=== PATIENT | female | born 1995 | race Hispanic/Latino ===

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

== ENCOUNTER 2017-04-07 18:10 | Emergency (ER) | payer MEDICAID ==
[2017-04-07] MEDS ORDERED: NACL 0.9% 1000 ML 2,000 ML IV ONE (23:51)
[2017-04-07] MEDS ORDERED: SUBLIMAZE IV ONE (23:51)
[2017-04-07] MEDS ORDERED: BENADRYL IV ONE (23:51)
[2017-04-07] MEDS ORDERED: REGLAN IV ONE (23:57)
[2017-04-08 01:10] LABS: Alanine Aminotransferase 69 units/L (7-56); Albumin 3.2 g/dL (3.9-5); BUN/Creatinine Ratio 20; Blood Urea Nitrogen 8 mg/dL (7-17); Calcium 8.3 mg/dL (8.4-10.2); Hemolysis Index 1
[2017-04-08 01:11] LABS: Basophils % (Auto) 0.1 % (0.0-1.8); Eosinophils # (Auto) 0.2 K/mm3 (0.0-0.4); Eosinophils % (Auto) 1.8 % (0.0-4.3); Hematocrit 36.1 % (30.3-42.9); Hemoglobin 11.9 gm/dl (10.1-14.3); Lymphocytes # (Auto) 2.7 K/mm3 (1.2-5.4); Lymphocytes % (Auto) 25.7 % (13.4-35.0); Mean Corpuscular HGB Conc 33 % (30-34); Mean Corpuscular Hemoglobin 29 pg (28-32); Mean Corpuscular Volume 87 fl (79-97); Monocytes % (Auto) 9.8 % (0.0-7.3); Platelet Count 421 K/mm3 (140-440); Red Blood Count 4.17 M/mm3 (3.65-5.03)
[2017-04-08 01:18] LABS: Bilirubin,Direct < 0.2 mg/dL (0-0.2)
--- NOTE | 2017-04-08 02:06 | Cat Scan Report ---
FINAL REPORT EXAM: CT HEAD/BRAIN W/O CONTRAST HISTORY: Headache. TECHNIQUE: Unenhanced axial CT images of the brain were obtained. No prior studies are available for comparison. FINDINGS: The cortical sulci and ventricles are within normal limits for patient's age. There is slight prominence of the pituitary gland, measuring 1.2 x 1.1 cm, with slightly hyperdense appearance. This may represent pituitary hyperplasia related to patient's recent state. However, underlying mass or hemorrhage is not excluded. There are no fluid-fluid levels. The garcia-white differentiation is maintained. There is no extra-axial fluid collection, mass effect, midline shift, or hydrocephalus. 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 There is opacification of an anterior left ethmoid air cell. The remainder of the visualized paranasal sinuses and mastoid air cells are clear. There is no skull fracture or other osseous abnormality. The visualized orbits and globes are grossly unremarkable. These findings were discussed with Dr. Ng at time of interpretation 2:01 a.m. EST 04/08/2017. IMPRESSION: 1. 1.2 x 1.1 cm slight relative prominence of the pituitary gland, with slightly hyperdense appearance. Underlying pituitary mass or hemorrhage is not excluded. Clinical correlation is recommended, and further evaluation with pituitary MRI (with and without contrast) is suggested. 2. No mass effect or hydrocephalus. 3. Minimal anterior left ethmoid sinus mucosal disease.
--- NOTE | 2017-04-08 02:51 | Emergency Department Report ---
HPI - General Chief Complaint: Headache Time Seen by Provider: 04/07/17 23:12 - HPI HPI: The patient is a 21-year-old female who presents for evaluation of headache for the past 5 days. She states that she has had headaches since receiving an epidural prior to child delivery. She complains of a constant headache since the procedure, currently 10/10 in severity, throbbing in quality, exacerbated with sitting up and improved with lying down. The patient denies fever, head injury, neck pain or neck stiffness, chest pain, dyspnea, abdominal pain, vision or hearing changes, smell or taste changes, paresthesias, facial drooping , slurred speech, seizure-like activity, urine or bowel incontinence or retention, or other focal neurological deficit. She states that she is formula feeding her child and will not be engaging in breast feeding of her child. ED Past Medical Hx - Past Medical History Previous Medical History?: Yes Hx Hypertension: No Hx Congestive Heart Failure: No Hx Diabetes: No Hx Deep Vein Thrombosis: No Hx Renal Disease: No Hx Sickle Cell Disease: No Hx Seizures: No Hx Asthma: No Hx COPD: No Hx HIV: No Additional medical history: Vaginal delivery x 2 - Surgical History Past Surgical History?: No - Social History Smoking Status: Current Every Day Smoker Substance Use Type: Alcohol, Prescribed - Medications Home Medications: Home Medications Medication Instructions Recorded Confirmed Last Taken Type Valacyclovir HCl [valACYclovir] 1 tab PO DAILY 03/05/16 04/02/17 1 Day Ago History ~04/01/17 Butalb/Acetaminophen/Caffeine 1 - 2 cap PO Q6HR PRN #12 cap 04/08/17 Unknown Rx [Fioricet 50-300-40 mg CAP] ED Review of Systems ROS: Stated complaint: HEADACHE Other details as noted in HPI Constitutional: denies: fever ENT: denies: throat or neck pain Respiratory: denies: cough, shortness of breath Cardiovascular: denies: chest pain Endocrine: denies unexplained weight loss or gain Gastrointestinal: denies: abdominal pain, nausea Genitourinary: denies: dysuria Musculoskeletal: denies: leg swelling Skin: denies: rash Neurological: reports: headache Hematological/Lymphatic: denies: easy bleeding or easy bruising Psych: denies sadness or hopelessness Physical Exam - Physical Exam Vital Signs: Vital Signs 02/08/18 02/08/18 18:36 21:52 Temperature 98.4 F 97.5 F L Pulse Rate 71 60 Respiratory 18 20 Rate Blood Pressure 120/72 Blood Pressure 108/54 [Left] O2 Sat by Pulse 99 97 Oximetry Physical Exam: General: well-nourished, well-developed, no acute distress Head: Normocephalic, atraumatic Eyes: normal sclera, PERRL, EOM intact ENT: Mucous membranes are pale and dry Neck: No neck stiffness, no cervical adenopathy Respiratory: Breath sounds equal bilaterally, no wheezing, rales, or rhonchi Cardio: S1 and S2 present, no murmurs, rubs, gallops, capillary refill is delayed Abdomen: Normoactive bowel sounds, soft abdomen, no rigidity, no guarding or rebound tenderness Chest WALL/Back: No tenderness to palpation of the chest wall, no CVA tenderness with percussion Musc: No pitting edema Skin: No rash Neuro: alert oriented x4, normal cognition, speech normal, no facial drooping, no uvula or tongue deviation on protrusion, no deficit with rotation of neck or shoulder shrug, no obvious gross motor deficit in the upper or lower extremities with flexion or extension at the shoulder, elbow, wrist, hip, knee, or ankle bilaterally, no obvious gross sensation deficit to crude touch or 2 pt discrimination, 2+ symmetric reflexes on DTR testing, no coordination deficit with [id number] or lqie-jz-aldx testing, romberg negative, patient able to to ambulate without abnormal gait Psych: Normal affect ED Course Vital Signs 18 02 18:36 21:52 Temperature 98.4 F 97.5 F L Pulse Rate 71 60 Respiratory 18 20 Rate Blood Pressure 120/72 Blood Pressure 108/54 [Left] O2 Sat by Pulse 99 97 Oximetry ED Medical Decision Making - Lab Data Result diagrams: 04/08/17 00:16 04/08/17 00:16 - Medical Decision Making The patient was seen and examined by myself. 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 On initial evaluation, the patient was found to be in no distress. Although there are no neuro deficits or other findings on examination concerning for acute intracranial disease process, as the patient has a space constant headache since epidural, a CAT scan the head will be obtained to rule out hydrocephaly and investigate findings concerning for epidural induced cerebral spinal fluid change. IV access is established and the patient is given IV Reglan, Benadryl, and fentanyl for headache. CT scan the head exhibited hypodensity in the pituitary region, and CT scan is unable to rule out acute ischemia or hemorrhage. An MRI of the head with and without contrast is ordered. The patient was reevaluated and reported that her pain was resolved. She was informed of recommendation to receive MRI of the head but declined. She stated that she felt back to baseline she would like to be discharged home. She was informed of benefits of receiving MRI of the head to rule out acute intracranial disease process versus risks of refusal of further evaluation. The patient is competent and was able to benefits of treatment and risks of refusal, other diagnostic options, including risk of . The patient signs out AGAINST MEDICAL ADVICE. Critical care attestation.: If time is entered above; I have spent that time in minutes in the direct care of this critically ill patient, excluding procedure time. ED Disposition Clinical Impression: Epidural anesthesia-induced headache during labor and delivery Headache, acute Qualifiers: Headache type: unspecified Intractability: not intractable Qualified Code(s): R51 - Headache Disposition: DC-07 LEFT AGAINST MED ADVICE Is pt being admited?: No Does the pt Need Aspirin: No Condition: Stable Instructions: Acute Headache (ED) Additional Instructions: Return to an emergency department as soon as possible to receive MRI of the brain with and without contrast to rule out pituitary infarction or hemorrhage, as her CAT scan was concerning for a pituitary lesion as was explained to you. Prescriptions: Butalb/Acetaminophen/Caffeine [Fioricet 50-300-40 mg CAP] 1 - 2 cap PO Q6HR PRN #12 cap PRN Reason: Headache Referrals: JUSTIN COLIN MD [Primary Care Provider] - 24 Hours Time of Disposition: 02:46
[2017-04-08 03:09] VITALS: BP 106/61
== END 2017-04-08 03:09 | disposition left against medical advice (07) ==
LOC: ED 18:10
DX: R51 Headache (principal); F17.200 Nicotine dependence, unspecified, uncomplicated
CPT/HCPCS: 36415; 70450; 80048; 80074; 85025; 96361; 96374; 96375; 99284; J1200; J2765; J3010; J7030

== ENCOUNTER 2018-09-20 17:55 | Outpatient (CLI) | payer MEDICAID ==
[2018-09-20 19:05] LABS: Amorphous Crystals,Urine 1+; Bacteria,Urine 1+ /HPF (Negative); Bilirubin,Urine NEG (Negative); Blood,Urine MOD (Negative); Color,Urine Yellow (Yellow); Mucus,Urine FEW /HPF; Protein,Urine <15 mg/dL mg/dL (Negative)
[2018-09-20 19:20] VITALS: BP 100/55
== END 2018-09-20 19:55 | disposition home or self-care (01) ==
LOC: TRG 17:55
PROVIDERS: ATTEND Obstetrics & Gynecology
DX: O47.03 False labor before 37 completed weeks of gestation, third trimester (principal); Z3A.34 34 weeks gestation of pregnancy
CPT/HCPCS: 81001

== ENCOUNTER 2018-10-17 15:57 | Outpatient (CLI) | payer MEDICAID ==
[2018-10-17 16:59] LABS: Amorphous Crystals,Urine 2+; Bilirubin,Urine NEG (Negative); Blood,Urine SM (Negative); Color,Urine Yellow (Yellow); Protein,Urine <15 mg/dL mg/dL (Negative); Urobilinogen,Urine < 2.0 mg/dL (<2.0)
[2018-10-17] MEDS ORDERED: LACTATED RINGERS 1,000 ML IV SCH (17:00)
[2018-10-17 17:05] LABS: RBC,Urine < 1.0 /HPF (0.0-6.0)
[2018-10-17] MEDS ORDERED: ZOFRAN IV ONE (18:33)
[2018-10-17] MEDS ORDERED: VISTARIL PO ONE (19:33)
[2018-10-17 20:27] VITALS: BP 108/57
[2018-10-17] MEDS ORDERED: ANCEF/NS 1 GM/50 ML 1 GM/50 ML BAG IV ONE (20:36)
== END 2018-10-17 20:40 | disposition home or self-care (01) ==
LOC: TRG 15:57
PROVIDERS: ATTEND Obstetrics & Gynecology
DX: O26.893 Other specified pregnancy related conditions, third trimester (principal); M54.5 Low back pain; O47.1 False labor at or after 37 completed weeks of gestation; O99.333 Smoking (tobacco) complicating pregnancy, third trimester; F17.200 Nicotine dependence, unspecified, uncomplicated; Z3A.37 37 weeks gestation of pregnancy
CPT/HCPCS: 59025; 81001; 87086; 96361; 96365; 96367; J0690; J2405; J7120; 96360; Q0177

== ENCOUNTER 2018-10-18 01:33 | Inpatient (IN) | payer MEDICAID ==
[2018-10-18] MEDS ORDERED: COLACE PO PRN (01:57)
[2018-10-18] MEDS ORDERED: TYLENOL PO PRN (01:57)
[2018-10-18] MEDS ORDERED: ZOFRAN IV PRN (01:57)
[2018-10-18] MEDS: MORPHINE IV PRN ×3 (03:28→12:52)
[2018-10-18 03:55] LABS: Basophils % (Auto) 0.1 % (0.0-1.8); Hematocrit 32.7 % (30.3-42.9); Lymphocytes # (Auto) 1.6 K/mm3 (1.2-5.4); Lymphocytes % (Auto) 14.2 % (13.4-35.0); Mean Corpuscular HGB Conc 34 % (30-34); Mean Corpuscular Volume 82 fl (79-97); Monocytes # (Auto) 1.4 K/mm3 (0.0-0.8); Monocytes % (Auto) 11.8 % (0.0-7.3); Platelet Count 328 K/mm3 (140-440); Red Blood Count 3.99 M/mm3 (3.65-5.03); Red Cell Distribution Width 15.6 % (13.2-15.2)
[2018-10-18] MEDS: PRENATAL VITAMIN PO SCH (10:22)
--- NOTE | 2018-10-18 11:38 | Ultrasound Report ---
ULTRASOUND RENAL INDICATION / CLINICAL INFORMATION: right flank pain. COMPARISON: None available. FINDINGS: RIGHT KIDNEY: Length = 13.7 cm. [normal > 9 cm] - Parenchymal Thickness = 1.6 cm. [normal > 1.5 cm] - Echogenicity: Slightly increased - Hydronephrosis: Moderate right hydronephrosis - Cyst or mass: No significant abnormality. - Stones: None seen. LEFT KIDNEY: Length = 13.3 cm. [normal > 9 cm] - Parenchymal Thickness = 1.3 cm. [normal > 1.5 cm] - Echogenicity: Slightly increased - Hydronephrosis: Mild to moderate left hydronephrosis - Cyst or mass: No significant abnormality. - Stones: None seen. URINARY BLADDER: No significant abnormality. FREE FLUID: None. ADDITIONAL FINDINGS: None. IMPRESSION: Bilateral hydronephrosis, right greater than left. Signer Name: Norman Longoria Jr, MD Signed: 10/18/2018 11:33 AM Workstation Name: [id number]
[2018-10-18] MEDS: LACTATED RINGERS 1,000 ML IV SCH ×2 (12:51→20:53)
[2018-10-18] MEDS ORDERED: PERCOCET 5/325 PO PRN (13:41)
--- NOTE | 2018-10-18 13:41 | Short Stay Summary ---
Short Stay Documentation Date of service: 10/18/18 Narrative H&P: Pt is a 23 year old who presents with right sided low back pain that started on yesterday. Pt states that pain does not shoot anywhere and is not exacerbated or lessened by anything. She is not polly/ She reports good movement. - History Principal diagnosis: possible kidney stone H&P: obtained from office Past Medical History: No medical history Past Surgical History: No surgical history Social history: single - Allergies and Medications Current Medications: Allergies latex Allergy (Severe, Verified 10/18/18 01:57) Itching Home Medications Medication Instructions Recorded Confirmed Last Taken Type No Known Home Medications [No 10/18/18 10/18/18 Unknown History Reported Home Medications] Active Medications Acetaminophen (Tylenol) 650 mg PO Q4H PRN PRN Reason: Pain MILD(1-3)/Fever >100.5/QURESHI Docusate Sodium (Colace) 100 mg PO Q12H PRN PRN Reason: Constipation Lactated Ringer's (Lactated Ringers) 1,000 mls @ 125 mls/hr IV DIRECT COUNT INCLUDES THE [facility] Last Admin: 10/18/18 12:51 Dose: 125 mls/hr Documented by: Morphine Sulfate (Morphine) 2 mg IV Q4H PRN PRN Reason: Pain, Moderate (4-6) Last Admin: 10/18/18 12:52 Dose: 2 mg Documented by: Multivitamins/Iron/Calcium ( Vitamin) 1 each PO QDAY COUNT INCLUDES THE [facility] Last Admin: 10/18/18 10:22 Dose: 1 each Documented by: Ondansetron HCl (Zofran) 4 mg IV Q6H PRN PRN Reason: Nausea And Vomiting Last Admin: 10/18/18 03:32 Dose: 4 mg Documented by: - Physical exam General appearance: no acute distress Breasts: deferred Heart: Regular rate, Normal S1, Normal S2 Gastrointestinal: normal, normoactive bowel sounds Female Genitourinary: normal Rectal Exam: deferred - Hospital course Hospital course: Patient to be placed on oral pain meds and discontinue morphine. If oral meds control pain, will plan for discharge later today. Short Stay Discharge Plan Follow up with: CAITLIN KELLY MD [Primary Care Provider] - 7 Days
[2018-10-18] MEDS ORDERED: MORPHINE IV ONE (19:20)
[2018-10-19] MEDS: LACTATED RINGERS 1,000 ML IV SCH ×3 (02:00→18:11)
[2018-10-19] MEDS: MORPHINE IV PRN ×2 (02:01→22:03)
[2018-10-19] MEDS: PRENATAL VITAMIN PO SCH (10:31)
[2018-10-19] MEDS: DILAUDID PO PRN ×2 (11:00→16:43)
--- NOTE | 2018-10-19 13:26 | Progress Note ---
Assessment and Plan HD 2 for this who presents with right sided lower back pain. Patient still rates pain 5-7/10. Pt is requesting induction, however, I explained to patient that induction is not warranted as her pain is not related. She has had minimal to no contractions and has had no cervical change with a category one tracing. Will change to PO pain meds and if pain is managed, will plan for discharge home. Subjective - Subjective Date of service: 10/19/18 Principal diagnosis: possible kidney stone Patient reports: movement normal, other (right sided low back pain) Objective - Vital Signs Vital Signs: Vital Signs - 12hr 10/19/18 10/19/18 10/19/18 02:00 02:01 09:58 Temperature 97.6 F Pulse Rate 92 H 107 H Respiratory 18 18 Rate Blood Pressure 106/51 101/64 Blood Pressure 101/64 [Left] 10/19/18 10/19/18 11:00 12:24 Temperature 98.3 F Pulse Rate 82 Respiratory 16 20 Rate Blood Pressure 103/56 Blood Pressure 103/56 [Left] - Exam Breasts: deferred Abdomen: Present: normal appearance, soft. Absent: distention, tenderness Uterus: Present: normal FHR: auscultation normal Cervical Dilatation: 1 Cervical Effacement Percentage: 40 - Labs Labs: Abnormal Labs 10/18/18 02:40 WBC 11.5 H RDW 15.6 H [place] % (Auto) 11.8 H [place] # 1.4 H Seg Neutrophils % 73.9 H Seg Neutrophils # 8.5 H
[2018-10-20] MEDS: PRENATAL VITAMIN PO SCH (10:14)
[2018-10-20] MEDS: DILAUDID PO PRN (10:15)
[2018-10-20 10:17] VITALS: BP 113/61
--- NOTE | 2018-10-20 10:38 | Progress Note ---
Assessment and Plan HD 3 for this patient with low back pain related to likely kidnwy stone. Pt has no contractions and no cervical change. Her pain is managed on PO Dilauded. I reiterated to patient that she could not be induced for this reason. Will discharge home on today with oral dilaudid. Subjective - Subjective Date of service: 10/20/18 Principal diagnosis: possible kidney stone Interval history: No change. Pt's pain is managed on oral Dilaudid. Patient reports: movement normal, other (right sided low back pain) Objective - Vital Signs Vital Signs: Vital Signs - 12hr 10/20/18 10/20/18 10/20/18 07:28 08:28 09:47 Pulse Rate 77 97 H 103 H Blood Pressure 95/51 109/65 110/59 10/20/18 10:17 Pulse Rate 98 H Blood Pressure 113/61 - Exam Cardiovascular: Regular rate, Normal S1, Normal S2 Abdomen: Present: normal appearance, soft. Absent: distention, tenderness Uterus: Present: normal FHR: auscultation normal Cervical Dilatation: 1 Cervical Effacement Percentage: 40 station: -4 - Labs Labs: Abnormal Labs 10/18/18 02:40 WBC 11.5 H RDW 15.6 H [place] % (Auto) 11.8 H [place] # 1.4 H Seg Neutrophils % 73.9 H Seg Neutrophils # 8.5 H
--- NOTE | 2018-10-20 10:40 | Discharge Summary ---
Providers - Providers Date of Admission: 10/20/18 08:54 Date of discharge: 10/20/18 Attending physician: CAITLIN KELLY Primary care physician: CAITLIN KELLY Hospitalization Reason for admission: other (kidney stone) Pertinent studies: REnal ultrasound Hospital course: unremarkable Condition at discharge: Good Disposition: DC-01 TO HOME OR SELFCARE Plan - Discharge Medications Prescriptions: HYDROmorphone [Dilaudid] 2 mg PO Q6HR #30 tablet - Provider Discharge Summary Activity: routine, no sex for 6 weeks, no strenuous exercise Diet: routine Instructions: routine Additional instructions: [] Smoking cessation referral if applicable(refer to patient education folder for contact #) [] Refer to [facility] Booklet Call your doctor immediately for: * Fever > 100.5 * Heavy vaginal bleeding ( >1 pad per hour) * Severe persistent headache * Shortness of breath * Reddened, hot, painful area to leg or breast * Drainage or odor from incision. * Keep incision clean and dry at all times and follow doctor's instructions regarding bathing/showering - Follow up plan Follow up: CAITLIN KELLY MD [Primary Care Provider] - 7 Days
== END 2018-10-20 11:09 | disposition home or self-care (01) | DRG 781 ==
LOC: TRG 01:33 → LD 02:42 → TRG 10-20 08:50 → LD 10-20 08:54
PROVIDERS: ADMIT Obstetrics & Gynecology; ATTEND Obstetrics & Gynecology
DX: O26.833 Pregnancy related renal disease, third trimester (principal); N20.0 Calculus of kidney; Z3A.38 38 weeks gestation of pregnancy; Z91.040 Latex allergy status
CPT/HCPCS: 36415; 76770; 85025; 86850; 86900; 86901; G0378; J2270; J2405; J7120

== ENCOUNTER 2018-10-31 19:30 | Outpatient (CLI) | payer MEDICAID ==
[2018-10-31 20:47] VITALS: BP 98/58
== END 2018-10-31 21:48 | disposition home or self-care (01) ==
LOC: TRG 19:30
PROVIDERS: ATTEND Obstetrics & Gynecology
DX: O60.03 Preterm labor without delivery, third trimester (principal); Z3A.39 39 weeks gestation of pregnancy
CPT/HCPCS: 59025

== ENCOUNTER 2018-11-07 04:26 | Inpatient (IN) | payer MEDICAID ==
[2018-11-07] MEDS ORDERED: BRETHINE IVP PRN (07:46)
[2018-11-07] MEDS ORDERED: AMPICILLIN/NS 2 GM/100 ML 2 GM/100 ML BAG IV ONE (07:46)
[2018-11-07] MEDS ORDERED: XYLOCAINE 2% INFILTRATI ONE (07:46)
[2018-11-07] MEDS ORDERED: BRETHINE SUB-Q PRN (07:46)
[2018-11-07] MEDS ORDERED: PITOCin/NS 30 UNIT/500ML 30 UNITS/500 ML BAG IV SCH (08:00)
[2018-11-07] MEDS ORDERED: LACTATED RINGERS 1,000 ML IV SCH (08:00)
[2018-11-07] MEDS ORDERED: PITOCin/NS 20 UNIT/1000ML DRIP 20 UNITS/1,000 ML BAG IV SCH (08:00)
[2018-11-07 08:36] LABS: Hematocrit 34.6 % (30.3-42.9); Hemoglobin 11.3 gm/dl (10.1-14.3); Mean Corpuscular HGB Conc 33 % (30-34); Mean Corpuscular Volume 81 fl (79-97); Platelet Count 379 K/mm3 (140-440); Red Blood Count 4.29 M/mm3 (3.65-5.03); Red Cell Distribution Width 16.5 % (13.2-15.2)
[2018-11-07] MEDS ORDERED: NARCAN 2 MG/2 ML IV PRN (09:45)
--- NOTE | 2018-11-07 09:47 | Anesthesia Consultation ---
Anesthesia Consult and Med Hx Date of service: 11/07/18 - Airway Anesthetic Teeth Evaluation: Good ROM Head & Neck: Adequate Mental/Hyoid Distance: Adequate Mallampati Class: Class II Intubation Access Assessment: Probably Good - Pulmonary Exam CTA: Yes - Cardiac Exam Cardiac Exam: RRR - Pre-Operative Health Status ASA Pre-Surgery Classification: ASA2 Proposed Anesthetic Plan: Epidural - Pulmonary Hx Smoking: Yes Hx Asthma: No Hx Respiratory Symptoms: No SOB: No COPD: No Home Oxygen Therapy: No Hx Pneumonia: No Hx Sleep Apnea: No - Cardiovascular System Hx Hypertension: No Hx Coronary Artery Disease: No Hx Heart Attack/AMI: No Hx Angina: No Hx Percutaneous Transluminal Coronary Angioplasty (PTCA): No Hx Cardia Arrhythmia: No Hx Pacemaker: No Hx Internal Defibrillator: No Hx Valvular Heart Disease: No Hx Heart Murmur: No Hx Peripheral Vascular Disease: No - Central Nervous System Hx Neuromuscular Disorder: No Hx Seizures: No CVA: No Hx Back Pain: No Hx Psychiatric Problems: No - Gastrointestinal Hx Ulcer: No Hx Gastroesophageal Reflux Disease: No - Endocrine Hx Renal Disease: No Hx End Stage Renal Disease: No Hx Cirrhosis: No Hx Liver Disease: No Hx Insulin Dependent Diabetes: No Hx Non-Insulin Dependent Diabetes: No Hx Thyroid Disease: No Hx Hypothyroidism: No Hx Hyperthyroidism: No - Hematic Hx Anemia: No Hx Sickle Cell Disease: No - Other Systems Hx Alcohol Use: Yes ("I dont drink nomore.") Hx Substance Use: No Hx Cancer: No Hx Obesity: No
[2018-11-07] MEDS ORDERED: fentaNYL-BUPIV 2 MCG/ML-0.125% 200 MCG/100 ML BAG EPIDURAL SCH (10:00)
[2018-11-07] MEDS ORDERED: MARCAINE 0.25% INFILTRATI ONE (10:13)
[2018-11-07] MEDS ORDERED: AMPICILLIN/NS 1 GM/50 ML 1 GM/50 ML BAG IV SCH (12:00)
--- NOTE | 2018-11-07 14:54 | History and Physical Report ---
History of Present Illness Date of examination: 11/07/18 Date of admission: 11/07/18 09:22 Chief complaint: I'm having contractions History of present illness: Pt is a 23 year old who presents in active labor at 41 weeks gestation. She has had an uncomplicated course. Her previous was born with hereditary osteogenesis imperfecta. Pt was admitted for kidney stones earlier in the Past History Past Medical History: no pertinent history Past Surgical History: no surgical history Family/Genetic History: none Social history: - Obstetrical History Expected Date of Delivery: 11/01/18 Actual Gestation: 40 Week(s) 6 Day(s) : 6 Number of Living Children: 2 Medications and Allergies Allergies Allergy/AdvReac Type Severity Reaction Status Date / Time latex Allergy Severe Itching Verified 10/18/18 01:57 Home Medications Medication Instructions Recorded Confirmed Last Taken Type HYDROmorphone [Dilaudid] 2 mg PO Q6HR #30 tablet 10/19/18 Unknown Rx Active Meds: Active Medications Ephedrine Sulfate (Ephedrine Sulfate) 10 mg IV Q2M PRN PRN Reason: Hypotension Oxytocin/Sodium Chloride (Pitocin/Ns 20 Unit/1000ml Drip) 20 units in 1,000 mls @ 125 mls/hr IV DIRECT AISHWARYA Oxytocin/Sodium Chloride (Pitocin/Ns 30 Unit/500ml) 30 units in 500 mls @ 1 mls/hr IV TITR AISHWARYA; Protocol Last Admin: 11/07/18 10:56 Dose: 4 milliunits/min, 4 mls/hr Documented by: Lactated Ringer's (Lactated Ringers) 1,000 mls @ 125 mls/hr IV DIRECT AISHWARYA Last Admin: 11/07/18 09:47 Dose: 125 mls/hr Documented by: Ampicillin Sodium (Ampicillin/Ns 1 Gm/50 Ml) 1 gm in 50 mls @ 100 mls/hr IV Q4HR AISHWARYA; Protocol Last Admin: 11/07/18 13:09 Dose: 100 mls/hr Documented by: Fentanyl/Bupivacaine/Sodium Chlor (Fentanyl-Bupiv 2 Mcg/Ml-0.125%) 200 mcg in 100 mls @ 12 mls/hr EPIDURAL TITR AISHWARYA; Protocol Last Admin: 11/07/18 10:19 Dose: 12 mls/hr Documented by: Mineral Oil (Mineral Oil) 30 ml PO QHS PRN PRN Reason: Constipation Naloxone HCl (Narcan 2 Mg/2 Ml) 0.2 mg IV Q5M PRN PRN Reason: Respiratory sedation Terbutaline Sulfate (Brethine) 0.25 mg SUB-Q ONCE PRN PRN Reason: Hyperstimulation/Hypertonicity Stop: 11/07/18 23:59 Terbutaline Sulfate (Brethine) 0.25 mg IVP ONCE PRN PRN Reason: Hyperstimulation/Hypertonicity Stop: 11/07/18 23:59 Review of Systems All systems: negative Constitutional: weight gain, fatigue Breasts: deferred Genitourinary: pelvic pain, contractions - Vital Signs Vital signs: Vital Signs Temp Pulse Resp BP 98.2 F 100 H 18 108/59 11/07/18 07:32 11/07/18 07:32 11/07/18 07:32 11/07/18 07:32 Temp Pulse Resp BP Pulse Ox 98.2 F 127 H 18 106/61 98 11/07/18 07:32 11/07/18 14:24 11/07/18 07:32 11/07/18 14:23 11/07/18 14:24 - Physical Exam Breasts: Cardiovascular: Regular rate, Normal S1, Normal S2 Abdomen: Positive: normal appearance, soft, normal bowel sounds. Negative: distention, tenderness Vulva: both: normal Vagina: Positive: normal moisture. Negative: discharge Cervix: Negative: lesion, discharge Uterus: Positive: normal size, normal contour Adnexa: both: normal Anus/Rectum: Positive: normal perianal skin, heme negative. Negative: rectal mass, hemorrhoids Extremities: Deep Tendon Reflex Grade: Normal +2 - Obstetrical FHR: auscultation normal Cervical Dilatation: 4 Cervical Effacement Percentage: 80 station: -2 Uterine Contraction Pattern: Regular Results Result Diagrams: 11/07/18 08:10 Abnormal lab results 11/07/18 Range/Units 08:10 WBC 12.0 H (4.5-11.0) K/mm3 MCH 26 L (28-32) pg RDW 16.5 H (13.2-15.2) % All other labs normal. Assessment and Plan IUP AT 41 WEEKS IN ACTIVE LABOR. ADMIT TO L&D. Anticipate
--- NOTE | 2018-11-07 14:56 | Procedure Note ---
OB Delivery Note - Delivery Date of Delivery: 11/07/18 Surgeon: CAITLIN KELLY Estimated blood loss: 200cc - Vaginal Delivery presentation: vertex Delivery position: OA Intrapartum events: none Delivery induction: none Delivery monitor: external FHT, external uterine Route of delivery: Delivery placenta: spontaneous Delivery cord: nuchal cord (cut on perineum) Episiotomy: none Delivery laceration: none Delivery comments: Viable male delivered over intact perineum without tight nuchal cut on the perineum. placed on maternal abdomen. Placenta delivered spo ntaneously and intact with 3vc. No lacerations. Pt tolerated procedure well. - A at 1 minute: 9 at 5 minutes: 9 Infant Gender: Male (7 pounds 13 ounces 3550 grams)
[2018-11-07] MEDS ORDERED: NORCO 5/325 PO PRN (17:19)
[2018-11-07] MEDS ORDERED: SODIUM CHLORIDE FLUSH SYRINGE 10 ML IV NR (17:19)
[2018-11-07] MEDS ORDERED: ZOFRAN IV PRN (17:19)
[2018-11-07] MEDS ORDERED: LANSINOH TP PRN (17:19)
[2018-11-07] MEDS ORDERED: PHENERGAN PO PRN (17:19)
[2018-11-07] MEDS ORDERED: PHENERGAN PR PRN (17:19)
[2018-11-07] MEDS ORDERED: TYLENOL PO PRN (17:19)
[2018-11-07] MEDS ORDERED: BENADRYL PO PRN (17:19)
[2018-11-07] MEDS ORDERED: MILK OF MAGNESIA PO PRN (17:19)
[2018-11-07] MEDS ORDERED: DULCOLAX PR PRN (17:19)
[2018-11-07] MEDS ORDERED: TUCKS PAD TP PRN (17:19)
[2018-11-07] MEDS: IBUPROFEN PO SCH (18:50)
[2018-11-07] MEDS ORDERED: MINERAL OIL PO PRN (22:00)
[2018-11-07] MEDS: COLACE PO SCH (22:11)
[2018-11-08 04:59] LABS: Hematocrit 31.8 % (30.3-42.9); Hemoglobin 10.6 gm/dl (10.1-14.3)
[2018-11-08] MEDS: IBUPROFEN PO SCH ×5 (05:55→23:14)
[2018-11-08] MEDS: PRENATAL VITAMIN PO SCH (10:05)
[2018-11-08] MEDS: COLACE PO SCH ×2 (10:05→23:14)
--- NOTE | 2018-11-08 10:45 | Progress Note ---
Subjective - Subjective Date of service: 11/08/18 Interval history: Pt is a 23 year old who presents in active labor at 41 weeks gestation. She has had an uncomplicated course. Her previous was born with hereditary osteogenesis imperfecta. Pt was admitted for kidney stones earlier in the Patient reports: appetite normal, voiding normally, pain well controlled, ambulating normally : doing well Objective - Vital Signs Latest vital signs: Vital Signs Temp Pulse Resp BP BP Pulse Ox 11/08/18 07:54 98.2 F 79 18 95/52 96 11/08/18 00:28 97.6 F 72 20 95/55 95 11/07/18 20:45 97.5 F L 83 20 103/58 97 11/07/18 17:05 97.7 F 81 20 97/55 98 11/07/18 16:31 85 100/56 11/07/18 16:16 71 105/53 11/07/18 16:01 76 105/53 11/07/18 15:46 79 96/52 11/07/18 15:31 94 H 101/56 11/07/18 15:17 87 103/54 11/07/18 14:53 95 H 100/55 11/07/18 14:48 93 H 107/59 11/07/18 14:24 127 H 98 11/07/18 14:23 107 H 106/61 11/07/18 14:19 117 H 99 11/07/18 14:14 90 99 11/07/18 14:09 90 108/63 98 11/07/18 14:04 90 97 11/07/18 13:59 86 97 11/07/18 13:54 92 H 98 11/07/18 13:53 88 98/53 11/07/18 13:49 92 H 99 11/07/18 13:44 90 98 11/07/18 13:39 87 98 11/07/18 13:38 83 103/58 11/07/18 13:34 94 H 96 11/07/18 13:29 84 98 11/07/18 13:24 87 107/55 98 11/07/18 13:19 89 99 11/07/18 13:14 89 98 11/07/18 13:09 89 98 11/07/18 13:08 87 104/58 11/07/18 13:04 92 H 98 11/07/18 12:59 90 97 11/07/18 12:54 89 99 11/07/18 12:53 92 H 103/64 11/07/18 12:49 79 98 11/07/18 12:44 83 96 11/07/18 12:39 79 106/54 98 11/07/18 12:34 90 96 11/07/18 12:29 75 97 11/07/18 12:24 81 99/55 97 11/07/18 12:19 74 97 11/07/18 12:14 77 97 11/07/18 12:09 84 97 11/07/18 12:08 81 101/55 11/07/18 12:04 93 H 97 11/07/18 11:59 82 97 11/07/18 11:54 92 H 97 11/07/18 11:53 83 95/50 11/07/18 11:49 79 98 11/07/18 11:44 81 98 11/07/18 11:39 88 97 11/07/18 11:38 77 99/62 11/07/18 11:34 96 H 97 11/07/18 11:29 86 98 11/07/18 11:24 87 97 11/07/18 11:23 93 H 94/52 11/07/18 11:19 92 H 98 11/07/18 11:14 101 H 98 11/07/18 11:09 82 98 11/07/18 11:08 82 99/55 11/07/18 11:04 84 97 11/07/18 10:59 99 H 97 11/07/18 10:54 104 H 97 11/07/18 10:53 98 H 99/59 11/07/18 10:49 94 H 98 Intake and Output 11/07/18 11/08/18 11/08/18 22:59 06:59 14:59 Intake Total 560 240 240 Output Total 600 Balance -40 240 240 Intake: Oral 560 240 240 Output: Urine 600 Void 600 Other: Total, Intake Amount 240 240 240 Total, Output Amount 600 # Voids Void 2 1 - Exam Breasts: Present: deferred Cardiovascular: Present: Regular rate, Normal S1, Normal S2 Lungs: Present: Clear to auscultation, Normal air movement Abdomen: Present: normal appearance, soft, normal bowel sounds Uterus: Present: normal, firm, fundal height below umbilicus
--- NOTE | 2018-11-08 10:48 | Discharge Summary ---
Providers - Providers Date of Admission: 11/07/18 09:22 Date of discharge: 11/08/18 Attending physician: CAITLIN KELLY Primary care physician: CAITLIN KELLY Hospitalization Reason for admission: active labor Delivery: Episiotomy: none Laceration: none Other procedures: none complications: none Discharge diagnosis: IUP at term delivered baby: male Hospital course: unremarkable Condition at discharge: Good Disposition: DC-01 TO HOME OR SELFCARE Plan - Discharge Medications Prescriptions: Ibuprofen [Motrin 600 MG tab] 600 mg PO Q6H #30 tablet HYDROcodone/APAP 5-325 [[place] 5-325 mg TAB] 2 each PO Q6H PRN #15 tablet PRN Reason: Pain, Moderate (4-6) - Provider Discharge Summary Activity: routine, no sex for 6 weeks, no heavy lifting 4 weeks, no strenuous exercise Diet: routine Instructions: routine Additional instructions: [] Smoking cessation referral if applicable(refer to patient education folder for contact #) [] Refer to [facility] Booklet Call your doctor immediately for: * Fever > 100.5 * Heavy vaginal bleeding ( >1 pad per hour) * Severe persistent headache * Shortness of breath * Reddened, hot, painful area to leg or breast * Drainage or odor from incision. * Keep incision clean and dry at all times and follow doctor's instructions regarding bathing/showering - Follow up plan Follow up: CAITLIN KELLY MD [Primary Care Provider] - 6 Weeks
[2018-11-08] MEDS ORDERED: XYLOCAINE 2% INFILTRATI ONE (19:38)
[2018-11-08] MEDS ORDERED: PITOCin/NS 20 UNIT/1000ML DRIP 20 UNITS/1,000 ML BAG IV SCH (22:00)
[2018-11-09] MEDS: IBUPROFEN PO SCH ×2 (05:44→11:19)
[2018-11-09] MEDS: PRENATAL VITAMIN PO SCH (11:19)
[2018-11-09] MEDS: COLACE PO SCH (11:19)
[2018-11-09 12:43] VITALS: BP 106/59
== END 2018-11-09 13:40 | disposition home or self-care (01) | DRG 775 ==
LOC: TRG 04:26 → LD 06:47 → TRG 09:21 → LD 09:22 → OB 17:15
PROVIDERS: ADMIT Obstetrics & Gynecology; ATTEND Obstetrics & Gynecology
PROC: 10E0XZZ Delivery of Products of Conception, External Approach (ICD-10-PCS; principal; 2018-11-07)
DX: O69.81X0 Labor and delivery complicated by cord around neck, without compression, not applicable or unspecified (principal); O99.334 Smoking (tobacco) complicating childbirth; F17.200 Nicotine dependence, unspecified, uncomplicated; O99.314 Alcohol use complicating childbirth; Z3A.40 40 weeks gestation of pregnancy; Z37.0 Single live birth; Z91.040 Latex allergy status; Z79.899 Other long term (current) drug therapy; Z72.89 Other problems related to lifestyle
CPT/HCPCS: 36415; 85014; 85018; 85027; 86592; 86850; 86900; 86901; G0378; J0290; J2590; J7120

== ENCOUNTER 2020-06-17 15:27 | Emergency (ER) | payer MEDICAID ==
[2020-06-17] MEDS ORDERED: SODIUM CHLORIDE 0.9% 1000 ML 1,000 ML IV ONE (15:35)
--- NOTE | 2020-06-17 15:39 | Emergency Department Report ---
ED Altered Mental Status HPI - General Stated Complaint: AMS PUI?: No Time Seen by Provider: 06/17/20 15:35 Source: EMS Limitations: Altered Mental Status - History of Present Illness Initial Comments: Chief complaint: Altered mental status HPI: This is a 24-year-old female with unknown past medical history who presents with altered mental status. [place] Patient informed treatment nurse states she drankequila all day". Patient was given naloxone with minimal effect via EMS. Family member spoke with nurse steam and power superintendent. Family member informed medical staff that patient uses GHB often. MD Complaint: altered mental status, decreased responsiveness -: unknown Consistency of Symptoms: waxing and waning Context: other (Patient admits to drinking "tequila") - Related Data Previous Rx's Medication Instructions Recorded Last Taken Type HYDROmorphone [Dilaudid] 2 mg PO Q6HR #30 tablet 10/19/18 Unknown Rx HYDROcodone/APAP 5-325 [[place] 2 each PO Q6H PRN #15 tablet 11/08/18 Unknown Rx 5-325 mg TAB] Ibuprofen [Motrin 600 MG tab] 600 mg PO Q6H #30 tablet 11/08/18 Unknown Rx Allergies Allergy/AdvReac Type Severity Reaction Status Date / Time latex Allergy Severe Itching Verified 10/18/18 01:57 ED Review of Systems ROS: Stated complaint: AMS Other details as noted in HPI Comment: Unobtainable due to pts medical conditions (Altered mental status) ED Past Medical Hx - Past Medical History Previous Medical History?: No Hx Hypertension: No Hx Heart Attack/AMI: No Hx Congestive Heart Failure: No Hx Diabetes: No Hx Deep Vein Thrombosis: No Hx Liver Disease: No Hx Renal Disease: No Hx Sickle Cell Disease: No Hx Seizures: No Hx Asthma: No Hx COPD: No Hx HIV: No Additional medical history: Vaginal delivery x 2 - Surgical History Past Surgical History?: No Hx Pacemaker: No Hx Internal Defibrillator: No - Social History Smoking Status: Current Every Day Smoker Substance Use Type: Alcohol - Medications Home Medications: Home Medications Medication Instructions Recorded Confirmed Last Taken Type HYDROmorphone [Dilaudid] 2 mg PO Q6HR #30 tablet 19 11/08/18 Unknown Rx HYDROcodone/APAP 5-325 [[place] 2 each PO Q6H PRN #15 tablet 11/08/18 Unknown Rx 5-325 mg TAB] Ibuprofen [Motrin 600 MG tab] 600 mg PO Q6H #30 tablet 11/08/18 Unknown Rx ED Physical Exam - General General appearance: alert, in no apparent distress, other (Patient arousable will not give history protecting airway purposeful movement) - Head Head exam: Present: atraumatic, normocephalic - Eye Eye exam: Present: normal appearance - ENT ENT exam: Present: mucous membranes moist - Neck Neck exam: Present: normal inspection, full ROM - Respiratory Respiratory exam: Present: normal lung sounds bilaterally. Absent: respiratory distress, wheezes, rales, rhonchi - Cardiovascular Cardiovascular Exam: Present: regular rate, normal rhythm, normal heart sounds. Absent: systolic murmur, diastolic murmur, rubs, gallop - GI/Abdominal GI/Abdominal exam: Present: soft, normal bowel sounds. Absent: distended, tenderness, guarding, rebound - Extremities Exam Extremities exam: Present: normal inspection - Back Exam Back exam: Present: normal inspection - Neurological Exam Neurological exam: Present: altered, oriented X3 - Psychiatric Psychiatric exam: Present: flat affect - Skin Skin exam: Present: warm, dry, intact, normal color. Absent: rash ED Course Vital Signs 06/17/20 15:30 Temperature 96.8 F L Pulse Rate 95 H Respiratory 18 Rate Blood Pressure 115/66 [Left] O2 Sat by Pulse 100 Oximetry - Lab Data Result diagrams: 06/17/20 15:47 06/17/20 15:47 Lab Results 06/17/20 06/17/20 06/17/20 Range/Units 15:47 15:47 15:47 WBC 9.1 (4.5-11.0) K/mm3 RBC 4.44 (3.65-5.03) M/mm3 Hgb 11.2 (10.1-14.3) gm/dl Hct 34.5 (30.3-42.9) % MCV 78 L (79-97) fl MCH 25 L (28-32) pg MCHC 32 (30-34) % RDW 17.4 H (13.2-15.2) % Plt Count 372 (140-440) K/mm3 Lymph % (Auto) 11.9 L (13.4-35.0) % [place] % (Auto) 9.1 H (0.0-7.3) % Eos % (Auto) 0.8 (0.0-4.3) % Baso % (Auto) 0.3 (0.0-1.8) % Lymph # (Auto) 1.1 L (1.2-5.4) K/mm3 [place] # (Auto) 0.8 (0.0-0.8) K/mm3 Eos # (Auto) 0.1 (0.0-0.4) K/mm3 Baso # (Auto) 0.0 (0.0-0.1) K/mm3 Seg Neutrophils % 77.9 H (40.0-70.0) % Seg Neutrophils # 7.1 (1.8-7.7) K/mm3 Sodium 142 (137-145) mmol/L Potassium 3.5 L (3.6-5.0) mmol/L Chloride 108.7 H (98-107) mmol/L Carbon Dioxide 18 L (22-30) mmol/L Anion Gap 19 mmol/L BUN 7 (7-17) mg/dL Creatinine 0.4 L (0.6-1.2) mg/dL Estimated GFR > 60 ml/min BUN/Creatinine Ratio 18 % Glucose 104 H (65-100) mg/dL Calcium 8.3 L (8.4-10.2) mg/dL Urine Color (Yellow) Urine Turbidity (Clear) Urine pH (5.0-7.0) Ur Specific [place] (1.003-1.030) Urine Protein (Negative) mg/dL Urine Glucose (UA) (Negative) mg/dL Urine Ketones (Negative) mg/dL Urine Blood (Negative) Urine Nitrite (Negative) Urine Bilirubin (Negative) Urine Urobilinogen (<2.0) mg/dL Ur Leukocyte Esterase (Negative) Urine WBC (Auto) (0.0-6.0) /HPF Urine RBC (Auto) (0.0-6.0) /HPF U Epithel Cells (Auto) (0-13.0) /HPF Urine Mucus /HPF Urine Opiates Screen Urine Methadone Screen Ur Barbiturates Screen Ur Phencyclidine Scrn Ur Amphetamines Screen U Benzodiazepines Scrn Urine Cocaine Screen U Marijuana (THC) Screen Drugs of Abuse Note Plasma/Serum Alcohol < 0.01 (0-0.07) % 06/17/20 06/17/20 Range/Units Unknown Unknown WBC (4.5-11.0) K/mm3 RBC (3.65-5.03) M/mm3 Hgb (10.1-14.3) gm/dl Hct (30.3-42.9) % MCV (79-97) fl MCH (28-32) pg MCHC (30-34) % RDW (13.2-15.2) % Plt Count (140-440) K/mm3 Lymph % (Auto) (13.4-35.0) % [place] % (Auto) (0.0-7.3) % Eos % (Auto) (0.0-4.3) % Baso % (Auto) (0.0-1.8) % Lymph # (Auto) (1.2-5.4) K/mm3 [place] # (Auto) (0.0-0.8) K/mm3 Eos # (Auto) (0.0-0.4) K/mm3 Baso # (Auto) (0.0-0.1) K/mm3 Seg Neutrophils % (40.0-70.0) % Seg Neutrophils # (1.8-7.7) K/mm3 Sodium (137-145) mmol/L Potassium (3.6-5.0) mmol/L Chloride (98-107) mmol/L Carbon Dioxide (22-30) mmol/L Anion Gap mmol/L BUN (7-17) mg/dL Creatinine (0.6-1.2) mg/dL Estimated GFR ml/min BUN/Creatinine Ratio % Glucose (65-100) mg/dL Calcium (8.4-10.2) mg/dL Urine Color Yellow (Yellow) Urine Turbidity Clear (Clear) Urine pH 6.0 (5.0-7.0) Ur Specific [place] 1.012 (1.003-1.030) Urine Protein <15 mg/dl (Negative) mg/dL Urine Glucose (UA) Neg (Negative) mg/dL Urine Ketones Neg (Negative) mg/dL Urine Blood Sm (Negative) Urine Nitrite Neg (Negative) Urine Bilirubin Neg (Negative) Urine Urobilinogen 4.0 (<2.0) mg/dL Ur Leukocyte Esterase Neg (Negative) Urine WBC (Auto) 1.0 (0.0-6.0) /HPF Urine RBC (Auto) 1.0 (0.0-6.0) /HPF U Epithel Cells (Auto) < 1.0 (0-13.0) /HPF Urine Mucus Few /HPF Urine Opiates Screen Negative Urine Methadone Screen Negative Ur Barbiturates Screen Negative Ur Phencyclidine Scrn Negative Ur Amphetamines Screen Presumptive positive U Benzodiazepines Scrn Negative Urine Cocaine Screen Negative U Marijuana (THC) Screen Negative Drugs of Abuse Note Disclamer Plasma/Serum Alcohol (0-0.07) % - EKG Data -: EKG Interpreted by Me EKG shows normal: sinus rhythm, axis, intervals, QRS complexes, ST-T waves Rate: normal Interpretation: normal EKG 06/17/20 15:47 EKG obtained 1543 EKG interpreted by de rate 90 Normal sinus rhythm normal rate normal axis normal intervals no ST elevation no ST-T signs of ischemia normal EKG - Medical Decision Making Acute methamphetamine intoxication: Blood alcohol level negative. Patient repeated that she only drank alcohol today. Patient is awake alert. GCS 15. She is ambulatory. She is anxious to leave. She denies any physical complaints. She stated that she only drink alcohol. She denies GHB use. Urine drug screen positive for amphetamine, chemistry reveals mild volume contraction with metabolic acidosis. Patient was treated with IV fluid. CBC within normal limits Critical Care Time: Yes Critical care time in (mins) excluding proc time.: 40 Critical care attestation.: If time is entered above; I have spent that time in minutes in the direct care of this critically ill patient, excluding procedure time. 40 minutes of critical care time excluding procedures were used in the care of the patient. I came immediately to the bedside upon patient's arrival. I obtained history from EMS at the bedside. I discussed treatment plan with the nursing team members. I reviewed electronic record. Patient required multiple interventions and reassessments. ED Disposition Clinical Impression: Methamphetamine intoxication Disposition: DC-01 TO HOME OR SELFCARE Is pt being admited?: No Does the pt Need Aspirin: No Condition: Stable Instructions: Methamphetamines Use Disorder Referrals: [facility] [Outside] - 3-5 Days
[2020-06-17 15:55] VITALS: BP 115/66
[2020-06-17 16:19] LABS: Basophils % (Auto) 0.3 % (0.0-1.8); Eosinophils # (Auto) 0.1 K/mm3 (0.0-0.4); Eosinophils % (Auto) 0.8 % (0.0-4.3); Hematocrit 34.5 % (30.3-42.9); Hemoglobin 11.2 gm/dl (10.1-14.3); Lymphocytes # (Auto) 1.1 K/mm3 (1.2-5.4); Lymphocytes % (Auto) 11.9 % (13.4-35.0); Mean Corpuscular HGB Conc 32 % (30-34); Mean Corpuscular Volume 78 fl (79-97); Monocytes # (Auto) 0.8 K/mm3 (0.0-0.8); Monocytes % (Auto) 9.1 % (0.0-7.3); Platelet Count 372 K/mm3 (140-440); Red Blood Count 4.44 M/mm3 (3.65-5.03); Red Cell Distribution Width 17.4 % (13.2-15.2)
[2020-06-17 16:20] LABS: Bilirubin,Urine NEG (Negative); Blood,Urine SM (Negative); Color,Urine Yellow (Yellow); Mucus,Urine FEW /HPF; Protein,Urine <15 mg/dL mg/dL (Negative)
[2020-06-17 16:22] LABS: Blood Urea Nitrogen 7 mg/dL (7-17); Calcium 8.3 mg/dL (8.4-10.2); Hemolysis Index 10
[2020-06-17 16:25] LABS: BUN/Creatinine Ratio 18
[2020-06-17 16:27] LABS: Amphetamine Screen,Urine PRESUMPTIVE POSITIVE
[2020-06-17 16:46] LABS: Benzodiazepines Screen,Urine Negative; Cannabinoid Screen,Urine Negative; Cocaine Screen,Urine Negative; Methadone Screen,Urine Negative; Opiate Screen,Urine Negative
--- NOTE | 2020-06-19 09:32 | Electrocardiograph Report ---
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
== END 2020-06-17 18:00 | disposition home or self-care (01) ==
LOC: ED 15:27
DX: F15.929 Other stimulant use, unspecified with intoxication, unspecified (principal); F17.200 Nicotine dependence, unspecified, uncomplicated; Z91.040 Latex allergy status; Z79.899 Other long term (current) drug therapy
CPT/HCPCS: 36415; 80048; 80307; 81001; 85025; 93005; 96360; 99284; J7030; 80320; G0480